=== PATIENT | male | born 1990 | race Two or more races ===

== ENCOUNTER 2021-09-06 02:56 | Emergency (ER) | payer SELFPAY ==
[~2021-09-06] VITALS: Ht 172.7 cm; Wt 117.9 kg
[2021-09-06 03:08] VITALS: BP 142/92
== END 2021-09-06 03:33 | disposition left against medical advice (07) ==
LOC: ER 02:56 → EDBD 02:56 → ER 03:33
DX: Z53.21 Procedure and treatment not carried out due to patient leaving prior to being seen by health care provider